=== PATIENT | male | born 1985 | race Caucasian/White ===

== ENCOUNTER 2017-11-09 04:25 | Emergency (ER) | payer OTHER ==
[~2017-11-09] VITALS: Ht 180.3 cm; Wt 80.7 kg
[2017-11-09 04:27] VITALS: Ht 180.3 cm; Wt 80.7 kg
[2017-11-09 04:55] LABS: BASO % 0.7 %; BASO ABS # 0.06 K/uL (0-0.2); EOS % 2.8 %; EOS ABS # 0.23 K/uL (0-0.5); HEMATOCRIT 45.3 % (42-52); HEMOGLOBIN 15.4 g/dL (14.0-18.0); IG# 0.01 K/uL (0.00-0.02); LYMPH % 33.3 %; LYMPH ABS # 2.75 K/uL (1.2-3.4); MEAN CELL VOLUME 90.1 fL (80-100); MEAN CORPUSCULAR HEMOGLOBIN 30.6 pg (25-34); MONO % 11.7 %; MONO ABS # 0.97 K/uL (0.11-0.59); NEUT % 51.4 %; NEUT ABS # 4.25 K/uL (1.4-6.5); PLATELET COUNT 297 K/uL (130-400); RED CELL DISTRIBUTION WIDTH CV 13.2 % (11.5-14.5); RED CELL DISTRIBUTION WIDTH SD 43.6 fL (36.4-46.3); WHITE BLOOD COUNT 8.27 K/uL (4.8-10.8)
--- NOTE | 2017-11-09 05:02 | EMERGENCY ROOM VISIT NOTE ---
History Report prepared by Prince: Jerry Abdi Under the Supervision of: Dr. Hattie Tang M.D. First contact with patient: 04:35 Chief Complaint: MENTAL HEALTH EVALUATION Stated Complaint: MENTAL HEALTH History of Present Illness The patient is a 32 year old male who presents to the Emergency Room for a mental health evaluation due to suicidal ideations and depression for the past few days. The patient states that he has been suicidal, and he has a couple of different plans such as hanging himself. He states that he was up all night last night depressed and crying. The patient went to the [facility] last night for admission due to his suicidal ideations, and they sent him here because he has a history of Grave's disease. He states that he does not have guns at home, though he does have kitchen knives. He denies any alcohol or drug use, and he states that he did not try to do anything prior to arrival. He states that he is currently unemployed and lives with his family. The patient reports that he has been an inpatient before for mental health. Source of History: patient Onset: the past few days Position: other (global) Quality: other (suicidal ideation and depression) Review of Systems See HPI for pertinent positives & negatives. A total of 10 systems reviewed and were otherwise negative. 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 General: Well-appearing male, in no significant distress. HEENT: No scleral icterus, PERRLA, neck supple. Atraumatic. Cardiovascular: Regular rate and rhythm, no extra sounds. Pulmonary: Clear to auscultation bilaterally, normal work of breathing. Abdomen: Soft, nontender, nondistended, positive bowel sounds. Musculoskeletal: Atraumatic, no peripheral edema. Neurologic: Patient awake sedate appearing, but arouses to verbal stimuli. Oriented x 3, full strength in all 4 extremities. Cranial nerves 2 through 12 grossly intact. Skin: Warm, dry, no rash Psych: Answers questions appropriately. Positive SI. Negative HI. Several plans for suicide. Medical Decision & Procedures Laboratory Results 11/09/17 04:40 Red Blood Count 5.03, Mean Corpuscular Volume 90.1, Mean Corpuscular Hemoglobin 30.6, Mean Corpuscular Hemoglobin Concent 34.0, Mean Platelet Volume 10.0, Neutrophils (%) (Auto) 51.4, Lymphocytes (%) (Auto) 33.3, Monocytes (%) (Auto) 11.7, Eosinophils (%) (Auto) 2.8, Basophils (%) (Auto) 0.7, Neutrophils # (Auto ) 4.25, Lymphocytes # (Auto) 2.75, Monocytes # (Auto) 0.97, Eosinophils # (Auto ) 0.23, Basophils # (Auto) 0.06 11/09/17 04:40 Test 11/09/17 04:30 11/09/17 04:40 Urine Color YELLOW Urine Appearance CLEAR (CLEAR) Urine pH 7.5 (4.5-7.5) Urine Specific [place] 1.011 (1.000-1.030) Urine Protein NEG (NEG) Urine Glucose (UA) NEG (NEG) Urine Ketones NEG (NEG) Urine Occult Blood NEG (NEG) Urine Nitrite NEG (NEG) Urine Bilirubin NEG (NEG) Urine Urobilinogen NEG (NEG) Urine Leukocyte Esterase NEG (NEG) Urine Opiates Screen NEG (NEG) Urine Methadone, Qualitative NEG (NEG) Urine Barbiturates NEG (NEG) Urine Phencyclidine (PCP) Level NEG (NEG) Ur Amphetamine/Methamphetamine NEG (NEG) MDMA (Ecstasy) Screen NEG (NEG) Urine Benzodiazepines Screen NEG (NEG) Urine Cocaine Metabolite POS (NEG) Urine Marijuana (THC) POS (NEG) White Blood Count 8.27 K/uL (4.8-10.8) Red Blood Count 5.03 M/uL (4.7-6.1) Hemoglobin 15.4 g/dL (14.0-18.0) Hematocrit 45.3 % (42-52) Mean Corpuscular Volume 90.1 fL (80-100) Mean Corpuscular Hemoglobin 30.6 pg (25-34) Mean Corpuscular Hemoglobin Concent 34.0 g/dl (32-36) Platelet Count 297 K/uL (130-400) Mean Platelet Volume 10.0 fL (7.4-10.4) Neutrophils (%) (Auto) 51.4 % Lymphocytes (%) (Auto) 33.3 % Monocytes (%) (Auto) 11.7 % Eosinophils (%) (Auto) 2.8 % Basophils (%) (Auto) 0.7 % Neutrophils # (Auto) 4.25 K/uL (1.4-6.5) Lymphocytes # (Auto) 2.75 K/uL (1.2-3.4) Monocytes # (Auto) 0.97 K/uL (0.11-0.59) Eosinophils # (Auto) 0.23 K/uL (0-0.5) Basophils # (Auto) 0.06 K/uL (0-0.2) RDW Standard Deviation 43.6 fL (36.4-46.3) RDW Coefficient of Variation 13.2 % (11.5-14.5) Immature Granulocyte % (Auto) 0.1 % Immature Granulocyte # (Auto) 0.01 K/uL (0.00-0.02) Anion Gap 4.0 mmol/L (3-11) Est Creatinine Clear Calc Drug Dose 143.4 ml/min Estimated GFR () 137.5 Estimated GFR (Non- 118.6 BUN/Creatinine Ratio 12.6 (10-20) Calcium Level 8.6 mg/dl (8.5-10.1) Total Bilirubin 0.2 mg/dl (0.2-1) Direct Bilirubin < 0.1 mg/dl (0-0.2) Aspartate Amino Transf (AST/SGOT) 36 U/L (15-37) Alanine Aminotransferase (ALT/SGPT) 58 U/L (12-78) Alkaline Phosphatase 55 U/L (45-117) Total Protein 7.6 gm/dl (6.4-8.2) Albumin 3.6 gm/dl (3.4-5.0) Thyroid Stimulating Hormone (TSH) 10.300 uIu/ml (0.300-4.500) Free Thyroxine 0.73 ng/dl (0.80-1.60) Salicylates Level 2.9 mg/dl (2.8-20) Acetaminophen Level < 2 ug/ml (10-30) Ethyl Alcohol mg/dL < 3.0 mg/dl (0-3) Laboratory results per my review. ED Course 0435: Past medical records reviewed. The patient was evaluated in room A2. A complete history and physical examination was performed. 0634: There is a call out to [facility] for a bed search. Medical Decision Differential diagnosis: Etiologies such as mood disorder, infection, hypoglycemia, electrolyte abnormalities, cardiac sources, intracerebral event, toxicologic, neurologic, as well as others were entertained. This patient was evaluated and appeared to be in no significant distress. The patient was medically cleared and evaluated by the mental health trimming caser. The patient's TSH is elevated however I suspect an element of noncompliance with his Synthroid. The patient's tox screen is positive for cocaine and marijuana. The patient can follow with his manager contracting his PCP within the next few weeks. The patient is voluntary for psychiatric admission at this time. I do believe he will require an inpatient stay as he has been suicidal and reiterates several plans for suicide. At this time the patient remains in the emergency department with a bed search underway. He has been signed out to Dr. Obrien at the change of shift, please see his notes for final details. Medication Reconcilliation Current Medication List: was personally reviewed by me Blood Pressure Screening Patient's blood pressure: Elevated blood pressure Blood pressure disposition: Elevated BP felt to be situational Impression Primary Impression: Hypothyroidism Additional Impressions: Suicidal thoughts Cocaine use Scribe Attestation The scribe's documentation has been prepared under my direction and personally reviewed by me in its entirety. I confirm that the note above accurately reflects all work, treatment, procedures, and medical decision making performed by me. Departure Information Patient Instructions My [facility] Problem Qualifiers
[2017-11-09 05:11] LABS: ALBUMIN 3.6 gm/dl (3.4-5.0); ALT/SGPT 58 U/L (12-78); AST/SGOT 36 U/L (15-37); BLOOD UREA NITROGEN 10 mg/dl (7-18); CALCIUM 8.6 mg/dl (8.5-10.1); CARBON DIOXIDE 30 mmol/L (21-32); CREATININE 0.78 mg/dl (0.60-1.40); GLUCOSE 77 mg/dl (70-99); POTASSIUM 4.2 mmol/L (3.5-5.1); SODIUM 135 mmol/L (136-145)
[2017-11-09 05:22] LABS: ALKALINE PHOSPHATASE 55 U/L (45-117); TOTAL PROTEIN 7.6 gm/dl (6.4-8.2)
[2017-11-09] MEDS ORDERED: THYR90TA6 PO (05:56)
[2017-11-09 11:16] VITALS: BP 123/85; PULSE 82; TEMP 37.1; O2SAT 98
--- NOTE | 2017-11-09 15:54 | EMERGENCY ROOM VISIT NOTE ---
ED Visit Note This patient was signed out to me by Dr. Tang at shift change. At that point we were waiting for placements. The patient had been medically cleared and was voluntary. He was ultimately placed in the [facility] and was transported there.
== END 2017-11-09 11:43 | disposition short-term general hospital (02) ==
LOC: EDBD 04:25 → C.EDA 04:27
DX: E03.9 Hypothyroidism, unspecified (principal); R45.851 Suicidal ideations; F14.90 Cocaine use, unspecified, uncomplicated; E05.00 Thyrotoxicosis with diffuse goiter without thyrotoxic crisis or storm; F17.210 Nicotine dependence, cigarettes, uncomplicated; Z79.899 Other long term (current) drug therapy